=== PATIENT | female | born 1965 | race Caucasian/White ===

== ENCOUNTER → 2018-09-16 | Outpatient (CLI) | payer BC | LOC: M WHC 13:48 | DX: Z12.31 Encounter for screening mammogram for malignant neoplasm of breast (principal); Z78.0 Asymptomatic menopausal state | CPT/HCPCS: 77067 ==

== ENCOUNTER → 2018-09-16 | Outpatient (REF) | payer BC ==
[2018-09-19 08:08] LABS: HPV HYBRID CAPTURE II Negative (Negative)
== END ==
LOC: M SFHCWAGY 14:01
DX: Z12.4 Encounter for screening for malignant neoplasm of cervix (principal); N95.2 Postmenopausal atrophic vaginitis
CPT/HCPCS: G0123

== ENCOUNTER → 2019-10-05 | Outpatient (CLI) | payer BC ==
--- NOTE | 2019-10-05 13:28 | REPMRS ---
Patient History The patient states she had a clinical breast exam in 2018. Family history of colorectal cancer at age 80 in paternal aunt. No Hormone Replacement Therapy Digital Woman Screen Mammo: October 05, 2019 - Exam #: [id number] Bilateral CC and MLO view(s) were taken. Technologist: Daysi Morse, Technologist Prior study comparison: September 16, 2018, bilateral digital woman screen mammo performed at [facility]. 2013, bilateral digital woman screen mammo, performed at [facility]. October 31, 2012, bilateral digital woman screen mammo, performed at [facility]. FINDINGS: The breast tissue is heterogeneously dense. This may lower the sensitivity of mammography. There is a moderate amount of heterogeneously dense fibroglandular tissue which is fairly symmetric. There is no interval development of dominant mass, architectural distortion, or grouped microcalcification typical of malignancy. There has been no change in the appearance of the mammogram from the prior studies. 3-D tomosynthesis shows no additional findings. Assessment: BI-RADS/ACR category 1 mammogram. Negative Mammogram. Recommendation Routine screening mammogram of both breasts in 1 year (for women over age 40). This patient's Lifetime Breast Cancer RIsk is estimated at 8.9 %. This mammogram was interpreted with the aid of an FDA-approved computer-aided dectection system. Electronically Signed By: Ash De La Garza MD 10/05/19 6011
== END ==
LOC: M WHC 12:52
PROVIDERS: ATTEND Nurse Practitioner Women's Health
DX: Z12.31 Encounter for screening mammogram for malignant neoplasm of breast (principal)

== ENCOUNTER → 2020-06-24 | Outpatient (CLI) | payer BC ==
--- NOTE | 2020-07-01 14:15 | SLEEPCENT ---
DATE: 06/24/2020 ORDERED BY: RAQUEL Santamaria Nocturnal polysomnography was performed for evaluation of sleep physiology in this patient with a history of extensive somnolence and nonrestorative sleep. Eight hours and 6 minutes of data were reviewed. There were 412.5 minutes of sleep identified. Sleep latency was normal at 16.5 minutes. REM latency was normal at 72 minutes. Sleep architecture was good with 4 REM cycles noted. Overall sleep efficiency was 86.2%. The electrocardiogram showed a sinus rhythm with an average heart rate of 58 beats per minute. Rate ranged 42-82. Occasional PVCs were seen. EEG showed reasonably normal waveforms for wake and sleep. There were no focal events. There were 14 respiratory events identified of 10 seconds in duration or greater for an apnea-hypopnea index of only 2. The events seen were more frequent in the supine posture. Snoring was noted. Arousals from respiratory events occurred only 1.6 times per hour, and there were no significant oxygen desaturations. There was minimal limb activity appreciated. IMPRESSIONS: Normal nocturnal polysomnography with snoring. RECOMMENDATION: Sleep position retraining for avoidance of the supine posture may be sufficient to address the patient's snoring problem. MTDD
== END ==
LOC: M SLEEP 20:00
PROVIDERS: ATTEND Nurse Practitioner Family
DX: R06.83 Snoring (principal)

== ENCOUNTER → 2020-10-27 | Outpatient (CLI) | payer BC ==
--- NOTE | 2020-10-27 09:21 | REPMRS ---
Patient History The patient states she has not had a clinical breast exam in over a year. Patient is postmenopausal. Family history of colorectal cancer at age 80 in paternal aunt. No Hormone Replacement Therapy 3D TOMOSYNTHESIS WAS PERFORMED. [facility] lifetime risk for breast cancer is 8.7%. Volpara breast density b. Digital Woman Screen Mammo: October 27, 2020 - Exam #: [id number] Bilateral CC and MLO view(s) were taken. Technologist: Elizabeth Jarrett, Technologist Prior study comparison: October 05, 2019, bilateral digital woman screen mammo performed at [facility]. September 16, 2018, bilateral digital woman screen mammo performed at [facility]. FINDINGS: The breast tissue is heterogeneously dense. This may lower the sensitivity of mammography. There has been no change in the appearance of the mammogram from the prior studies. There is a moderate amount of residual fibroglandular tissue which is fairly symmetric. There is no interval development of dominant mass, areas of architectural distortion, or clustered microcalcification typical of malignancy. Assessment: BI-RADS/ACR category 1 mammogram. Negative Mammogram. Recommendation Routine screening mammogram in 1 year (for women over age 40). This mammogram was interpreted with the aid of an FDA-approved computer-aided dectection system. Electronically Signed By: Zhang Cee MD 10/27/20 0920
== END ==
LOC: M WHC 06:06
PROVIDERS: ATTEND Nurse Practitioner Family
DX: Z12.31 Encounter for screening mammogram for malignant neoplasm of breast (principal)

== ENCOUNTER → 2021-05-16 | Outpatient (REF) | payer BC | LOC: M SFHCWAGY 08:22 | PROVIDERS: ATTEND Nurse Practitioner Women's Health | DX: Z12.4 Encounter for screening for malignant neoplasm of cervix (principal); Z01.419 Encounter for gynecological examination (general) (routine) without abnormal findings; Z77.9 Other contact with and (suspected) exposures hazardous to health ==

== ENCOUNTER → 2022-11-27 | Outpatient (REF) | payer BC | LOC: M PLALAB 16:05 | PROVIDERS: ATTEND Advanced Practice Midwife | DX: Z12.4 Encounter for screening for malignant neoplasm of cervix (principal) | CPT/HCPCS: 87624; G0123 ==

== ENCOUNTER → 2022-11-27 | Outpatient (CLI) | payer BC | LOC: M WHC 15:10 | PROVIDERS: ATTEND Advanced Practice Midwife | DX: Z12.31 Encounter for screening mammogram for malignant neoplasm of breast (principal) ==

== ENCOUNTER 2023-06-11 05:59 | Day surgery (SDC) | payer BC ==
[~2023-06-11] VITALS: Ht 167.6 cm; Wt 69.9 kg
[~2023-06-11 05:59] MED LIST: AMIO200T49 PO; BUSP5TA PO; D200CAP2 PO; DILT1TAB PO; ELIQ5TAB PO; EQL50TAB2 PO; MAGN400C2 PO; VITA100065 PO; ZINC50TA17 PO; [UNRECOGNIZED DRUG - CODE] PO
[2023-06-11] MEDS ORDERED: LR 1,000 ML IV SCH (06:30)
[2023-06-11] MEDS ORDERED: VANCOMYCIN 1000MG/20ML VIAL As Ordered ONE (07:07)
[2023-06-11] MEDS ORDERED: propofoL 200 MG/20 ML VIAL As Ordered ONE (07:40)
[2023-06-11 08:20] VITALS: BP 137/75; TEMP 96.8; O2SAT 98
[2023-06-11] MEDS ORDERED: oxyCODONE 5MG TAB PO PRN (08:50)
[2023-06-11] MEDS ORDERED: fentaNYL 100 MCG/2 ML INJECTION IV PRN (08:50)
[2023-06-11] MEDS ORDERED: ONDANSETRON 4MG 2ML VIAL IV PRN (08:50)
== END 2023-06-11 08:30 | disposition home or self-care (01) ==
LOC: M SDC 05:59
PROVIDERS: ATTEND Internal Medicine Cardiovascular Disease
DX: I48.91 Unspecified atrial fibrillation (principal); F41.9 Anxiety disorder, unspecified; F32.A Depression, unspecified; Z79.01 Long term (current) use of anticoagulants; Z79.899 Other long term (current) drug therapy
CPT/HCPCS: 92960; 93005; J0665

== ENCOUNTER → 2023-12-03 | Outpatient (CLI) | payer BC | LOC: M WHC 15:02 | PROVIDERS: ATTEND Advanced Practice Midwife | DX: Z12.31 Encounter for screening mammogram for malignant neoplasm of breast (principal) ==

== ENCOUNTER → 2024-12-04 | Outpatient (CLI) | payer BC | LOC: M WHC 14:54 | PROVIDERS: ATTEND Nurse Practitioner Family | DX: Z12.31 Encounter for screening mammogram for malignant neoplasm of breast (principal) ==

== ENCOUNTER → 2025-09-23 | Outpatient (REF) | payer BC ==
[~2025-09-23] MED LIST changes: -AMIO200T49 PO; +AMIO200T54 PO; -EQL50TAB2 PO; +VITA1TAB82 PO
[2025-09-25 12:57] LABS: HPV APTIMA Not Detected (Not Detected)
== END ==
LOC: M SFHCWAGY 13:13
PROVIDERS: ATTEND Advanced Practice Midwife
DX: Z12.4 Encounter for screening for malignant neoplasm of cervix (principal)
CPT/HCPCS: 87624; G0123